=== PATIENT | male | born 1985 | race African-American/Black ===

== ENCOUNTER 2016-06-05 12:22 | Emergency (ER) | payer SELFPAY ==
[~2016-06-05] VITALS: Ht 180.3 cm; Wt 84.0 kg
[~2016-06-05 12:22] MED LIST: AMOX875T PO; NAPR-576 PO; ROBA750T3 PO
[2016-06-05 12:23] VITALS: BP 129/78; PULSE 63; RESP 15; TEMP 98.2; O2SAT 98
--- NOTE | 2016-06-05 12:31 | PD ---
Physical Exam Time Seen by Provider: 12:28 Narrative 30yo M w/ thoughts of suicide for the last couple of weeks. Brought in by family for BA. He has been walking around w/ a gun and admits to wanting to shoot himself. Denies ETOH or drug use. Family staying with patient. Patient stable. Patient seen in triage. Awaiting bed placement. Data Data Last Documented VS Vital Signs Date Time Temp Pulse Resp B/P Pulse Ox O2 Delivery O2 Flow Rate FiO2 06/05/16 12:23 98.2 63 15 129/78 98 MDM Supervised Visit with MARCO A: Nadya Gomez Jun 05, 2016 12:31
--- NOTE | 2016-06-05 13:29 | PD ---
HPI Chief Complaint: Suicide Ideation/Attempt Time Seen by Provider: 13:29 Travel History International Travel<30 days: No Contact w/Intl Traveler<30days: No Traveled to known affect area: No History of Present Illness HPI 30-year-old male presents to the department voluntarily for psychiatric evaluation. Patient states he has been having increased stressors, recently , and not getting to be there for his daughter says he would like to. He has been depressed she has never experienced before in his life and has been having suicidal thoughts. He has a gun in the home and today was walking back and forth with the gun contemplating suicide. He states that he locked the gun up and is ready to go home at this time. Denies any acute medical needs. Reports occasional marijuana smoking. No other symptoms to report. PFSH Past Medical History Medical History: Denies Significant Hx Social History Alcohol Use: Yes Tobacco Use: No Substance Use: Yes (marijuana) Allergies-Medications (Allergen,Severity, Reaction): Coded Allergies: No Known Allergies (Verified , 06/05/16) Reported Meds & Prescriptions Reported Meds & Active Scripts Active Amoxil (Amoxicillin) 875 Mg Tab 875 Mg PO BID 10 Days Robaxin-750 (Methocarbamol) 750 Mg Tab 750 Mg PO Q6 PRN FOR PAIN Naproxen 500 Mg Tab 500 Mg PO Q12 PRN Review of Systems Except as stated in HPI: all other systems reviewed are Neg Physical Exam Narrative GENERAL: Well-nourished male patient, in no acute distress SKIN: Focused skin assessment warm/dry. HEAD: Atraumatic. Normocephalic. EYES: Pupils equal and round. No scleral icterus. No injection or drainage. ENT: No nasal bleeding or discharge. Mucous membranes pink and moist. NECK: Trachea midline. No JVD. CARDIOVASCULAR: Regular rate and rhythm. No murmur appreciated. RESPIRATORY: No accessory muscle use. Clear to auscultation. Breath sounds equal bilaterally. GASTROINTESTINAL: Abdomen soft, non-tender, nondistended. Hepatic and splenic margins not palpable. MUSCULOSKELETAL: No obvious deformities. No clubbing. No cyanosis. No edema. NEUROLOGICAL: Awake and alert. No obvious cranial nerve deficits. Motor grossly within normal limits. Normal speech. Data Data Last Documented VS Vital Signs Date Time Temp Pulse Resp B/P Pulse Ox O2 Delivery O2 Flow Rate FiO2 06/05/16 19:00 59 18 129/81 Room Air 06/05/16 12:23 98.2 98 Orders Complete Blood Count With Diff (06/05/16 13:29) Basic Metabolic Panel (Bmp) (06/05/16 13:29) Psych Screen (06/05/16 13:29) Drug Screen, Random Urine (06/05/16 13:29) Alcohol (Ethanol) (06/05/16 13:29) Diet Regular Basic (06/05/16 Lunch) Diet Regular Basic (06/05/16 Dinner) Labs Laboratory Tests Test 06/05/16 06/05/16 14:45 15:00 White Blood Count 6.8 TH/MM3 Red Blood Count 4.58 MIL/MM3 Hemoglobin 14.1 GM/DL Hematocrit 41.8 % Mean Corpuscular Volume 91.3 FL Mean Corpuscular Hemoglobin 30.8 PG Mean Corpuscular Hemoglobin 33.7 % Concent Red Cell Distribution Width 13.2 % Platelet Count 188 TH/MM3 Mean Platelet Volume 8.6 FL Neutrophils (%) (Auto) 54.6 % Lymphocytes (%) (Auto) 35.9 % Monocytes (%) (Auto) 8.1 % Eosinophils (%) (Auto) 1.0 % Basophils (%) (Auto) 0.4 % Neutrophils # (Auto) 3.7 TH/MM3 Lymphocytes # (Auto) 2.5 TH/MM3 Monocytes # (Auto) 0.6 TH/MM3 Eosinophils # (Auto) 0.1 TH/MM3 Basophils # (Auto) 0.0 TH/MM3 CBC Comment DIFF FINAL Differential Comment Sodium Level 141 MEQ/L Potassium Level 3.9 MEQ/L Chloride Level 106 MEQ/L Carbon Dioxide Level 29.1 MEQ/L Anion Gap 6 MEQ/L Blood Urea Nitrogen 12 MG/DL Creatinine 1.16 MG/DL Estimat Glomerular Filtration 89 ML/MIN Rate Random Glucose 83 MG/DL Calcium Level 8.7 MG/DL Ethyl Alcohol Level LESS THAN 3 MG/DL Urine Opiates Screen NEG Urine Barbiturates Screen NEG Urine Amphetamines Screen NEG Urine Benzodiazepines Screen NEG Urine Cocaine Screen NEG Urine Cannabinoids Screen POS MDM Medical Decision Making Medical Screen Exam Complete: Yes Emergency Medical Condition: Yes Medical Record Reviewed: Yes Differential Diagnosis Mood disorder versus personality disorder versus adjustment reaction disorder versus depression NOS Narrative Course 30-year-old male presents to emergency department voluntarily for psychiatric evaluation. Patient does admit to walking around the house with a gun that he has in his possession at home, contemplating suicide. He states that it is locked up and would like to go home at this time. Revealed the patient goes home he is at risk of harming himself he cannot guarantee that he will not. I discussed this with my attending physician. Patient will be placed under a Bl[place] act at this time. CBC and BMP are without acute concern. Toxicology is positive for cannabinoids. Patient is medically cleared to undergo psychiatric screening for further evaluation and disposition. Mental health screening discussed with the patient. Psychiatric screen ordered. Diagnosis Primary Impression: Adjustment disorder with depressed mood Additional Impression: Suicidal thoughts Condition: Stable Agnes Whiteside Jun 05, 2016 13:29
[2016-06-05 15:21] LABS: AUTOMATED NEUTROPHIL # 3.7 TH/MM3 (1.8-7.7); BASOPHIL % 0.4 % (0.0-2.0); EOSINOPHIL # 0.1 TH/MM3 (0-0.4); HEMATOCRIT 41.8 % (39.0-51.0); HEMO FLAGS DIFF FINAL; LYMPH % 35.9 % (9.0-44.0); LYMPHOCYTE # 2.5 TH/MM3 (1.0-4.8); MEAN CELL VOLUME 91.3 FL (80.0-100.0); MEAN CORPUSCULAR HEMOGLOBIN 30.8 PG (27.0-34.0); MEAN CORPUSCULAR HGB CONC 33.7 % (32.0-36.0); MONO % 8.1 % (0.0-8.0); NEUT % 54.6 % (16.0-70.0); PLATELET COUNT 188 TH/MM3 (150-450); RED BLOOD COUNT 4.58 MIL/MM3 (4.50-5.90); RED CELL DISTRIBUTION WIDTH 13.2 % (11.6-17.2); WHITE BLOOD COUNT 6.8 TH/MM3 (4.0-11.0)
[2016-06-05 15:29] LABS: ANION GAP 6 MEQ/L (5-15); BICARBONATE 29.1 MEQ/L (21.0-32.0); BLOOD UREA NITROGEN 12 MG/DL (7-18); CHLORIDE 106 MEQ/L (98-107); GLOMERULAR FILTRATION RATE 89 ML/MIN (>89); POTASSIUM 3.9 MEQ/L (3.5-5.1); SODIUM (NA) 141 MEQ/L (136-145)
[2016-06-05 15:41] LABS: AMPHETAMINE, URINE NEG (NEG); BARBITURATES, URINE NEG (NEG); COCAINE, URINE NEG (NEG)
[2016-06-05 19:00] VITALS: BP 129/81; PULSE 59; RESP 18
[2016-06-05 22:00] VITALS: BP 115/68; PULSE 58; RESP 19; O2SAT 98
== END 2016-06-06 00:56 ==
LOC: NEPJ 12:22
DX: F43.21 Adjustment disorder with depressed mood (principal); R45.851 Suicidal ideations
CPT/HCPCS: 80048; 80307; 85025; 99285